=== PATIENT | male | born 1955 | race Two or more races ===

== ENCOUNTER 2017-06-11 16:06 | Emergency (ER) | payer MEDICAID ==
[2017-06-11] MEDS ORDERED: HYDROCODONE/APAP 10/325 TABLET PO ONE (16:30)
--- NOTE | 2017-06-11 16:35 | Emergency Department Record ---
History of Present Illness - General Chief Complaint: Back Pain/Injury Stated Complaint: CHRONIC BACK PAIN Time Seen by Provider: 06/11/17 16:25 Source: Patient Mode of Arrival: Ambulatory Limitations: No limitations - History of Present Illness Initial Comments: The patient is here due to his chronic back pain flaring up today. He has a LONG hx of chronic pain and ran out of his [place] this AM. Now his pain is worse. The pain is located in the mid back and is much worse with any movement and bending. He denies any arm or leg numbness, weakness, or any bowel or bladder incontinence or inability to go. The patient states he does have script waiting for him at the pharmacy but has none for today. The patient denies any new pain or any trauma or fall. MD Complaint: Back pain Onset/Timin -: Days(s) Treatments Prior to Arrival: Prescription analgesics - Related Data Allergies Allergy/AdvReac Type Severity Reaction Status Date / Time codeine Allergy Severe TACHYCARDIA Verified 06/11/17 16:24 ibuprofen [From Motrin] AdvReac Mild NAUSEA Verified 06/11/17 16:24 pregabalin [From Lyrica] AdvReac Mild DIZZINESS Verified 06/11/17 16:24 zolpidem tartrate AdvReac Mild DIZZINESS Verified 06/11/17 16:24 [From Ambien] Travel Screening - Travel/Exposure Within Last 30 Days Have you traveled within the last 30 days?: No - Travel/Exposure Within Last Year Have you traveled outside the [place] in the last year?: No - Additonal Travel Details Have you been exposed to anyone with a communicable illness?: No - Travel Symptoms Symptom Screening: None Review of Systems Constitutional: Denies: Chills Eyes: Denies: Eye discharge ENT: Denies: Congestion Respiratory: Denies: Dyspnea Past Medical History - SOCIAL HISTORY Smoking Status: Current every day smoker Alcohol Use: None Drug Use: None - RESPIRATORY Hx Respiratory Disorders: Yes Hx Asthma: Yes - CARDIOVASCULAR Hx Cardio Disorders: No Hx Cardiac Cath: Yes (neg) Comment:: bradycardia episodes, asymptomatic - NEURO Hx Neuro Disorders: No Hx Headaches: Yes Hx of Migraines: Yes Hx Neuropathy: Yes (occasionally in RUE) - GI Hx GI Disorders: Yes Hx Hepatitis/Jaundice: Yes (now a ' virus' finished testing) - Hx Genitourinary Disorders: Yes Hx Kidney Stones: Yes - ENDOCRINE Hx Endocrine Disorders: No - MUSCULOSKELETAL Hx Musculoskeletal Disorders: Yes Hx Back Injury: Yes (slip and fall injury) - PSYCH Hx Psych Problems: Yes Hx Anxiety: Yes Hx Depression: Yes - HEMATOLOGY/ONCOLOGY Hx Hematology/Oncology Disorders: No Family Medical History Any Significant Family History?: No Family Hx Comment (NOT TO BE USED IN PLACE OF ITEMS BELOW): does not know anything about father Hx Cancer: Brother/Sister Hx HTN: Brother/Sister Hx Liver Disease: Grandparents Physical Exam - General General Appearance: Alert, Oriented x3, Cooperative, No acute distress - Head Head exam: Atraumatic, Normocephalic, Normal inspection - Eye Eye exam: Normal appearance, PERRL - Neck Neck exam: Normal inspection, Full ROM. negative: Tenderness - Respiratory Respiratory exam: Normal lung sounds bilaterally. negative: Respiratory distress - Cardiovascular Cardiovascular Exam: Regular rate, Normal rhythm, Normal heart sounds - GI/Abdominal GI/Abdominal exam: Soft, Normal bowel sounds. negative: Tenderness - Extremities Extremities exam: Normal inspection, Full ROM, Normal capillary refill. negative: Tenderness - Neurological Neurological exam: Alert, Normal gait, Oriented X3, Reflexes normal, Other (Neg SLR bilaterally. ). negative: Abnormal gait, Altered, Motor sensory deficit Course Vital Signs 06/11/17 16:14 Pulse Rate 66 Respiratory 20 Rate Blood Pressure 140/85 Pulse Ox 96 - Reevaluation(s) Reevaluation #1: I did explain to the patient that we do not treat chronic pain in the ED. I was willing to give him 2 pain pills for home and he is to see his PCP this week for recheck. 06/11/17 16:33 Disposition Disposition: Discharge Clinical Impression: Chronic back pain Qualifiers: Back pain location: back pain in unspecified location Back pain laterality: midline Qualified Code(s): M54.9 - Dorsalgia, unspecified Disposition: Home, Self-Care Condition: (2) Stable Instructions: Chronic Back Pain (ED) Additional Instructions: Please take your pain medicine as directed. Please see your PCP for recheck in 2 -3 days. Return to the ER for any increased pain, fever, arm or leg numbness, weakness or any bowel or bladder issues. Forms: Patient Portal Access Time of Disposition: 16:35 Quality - Quality Measures Quality Measures: N/A - Blood Pressure Screening View Details: Yes Does Patient Have Any of the Following: No Blood Pressure Classification: Pre-Hypertensive BP Reading Systolic Measurement: 138 Diastolic Measurement: 86 Screening for High Blood Pressure: < Pre-Hypertensive BP, F/U Documented > [ G8950] Pre-Hypertensive Follow-up Interventions: Referral to alternative/primary care provider.
== END 2017-06-11 16:53 | disposition home or self-care (01) ==
LOC: ER 16:06
DX: G89.29 Other chronic pain (principal); M54.6 Pain in thoracic spine
CPT/HCPCS: 99282

== ENCOUNTER 2018-05-20 12:07 | Observation (INO) | payer MEDICARE, MEDICAID ==
[2018-05-20] MEDS ORDERED: 0.9 % SODIUM CHLORIDE 1,000 ML BAG IV ONE (12:12)
[2018-05-20] MEDS ORDERED: ACETAMINOPHEN 1,000 MG/100 ML BTL IVPB ONE (12:12)
--- NOTE | 2018-05-20 12:19 | Emergency Department Record ---
History of Present Illness - General Chief Complaint: Passed out Stated Complaint: FALL/HEAD INJURY Time Seen by Provider: 05/20/18 12:11 Source: Patient Mode of Arrival: Ambulatory Limitations: No limitations - History of Present Illness Initial Comments: 62 yo male presents after passing out. He reports he woke up this morning around 8:30 -9am. He went downstairs to make coffee. He was walking into the kitchen and became lightheaded. He states everything went black and he passed out. He hit the back of his head and neck. No incontinence. He states he had a similar episode 3 weeks ago where he briefly passed out. He denies a cardiac history. His PCP is Dr Sanders. The patient smokes. He denies alcohol. He lives with his mother. Today's event was not witnessed. He is treated for chronic pain. MD Complaint: Collapsed, Loss of consciousness -: Hour(s) (3) Prodromal Symptoms: Lightheaded Witnessed: No Injuries Sustained Associated with Event: Head, Neck, Back Current Symptoms: Headache, Lightheaded Context: Standing up Treatments Prior to Arrival: None - Related Data Allergies Allergy/AdvReac Type Severity Reaction Status Date / Time codeine Allergy Severe TACHYCARDIA Unverified 04/20/18 12:33 ibuprofen [From Motrin] AdvReac Mild NAUSEA Unverified 04/20/18 12:33 pregabalin [From Lyrica] AdvReac Mild DIZZINESS Unverified 04/20/18 12:33 zolpidem tartrate AdvReac Mild DIZZINESS Unverified 04/20/18 12:33 [From Ambien] Review of Systems Constitutional: Denies: Chills, Fever, Malaise, Weakness Eyes: Denies: Eye discharge, Eye pain ENT: Denies: Congestion, Throat pain Respiratory: Denies: Cough, Dyspnea, Hemoptysis, Stridor, Wheezes Cardiovascular: Reports: Syncope. Denies: Chest pain, Palpitations Endocrine: Denies: Fatigue Gastrointestinal: Denies: Diarrhea, Nausea, Vomiting Genitourinary: Denies: Dysuria, Frequency, Hematuria Musculoskeletal: Reports: Back pain, Neck pain. Denies: Arthralgia Skin: Denies: Bruising, Change in color, Rash Neurological: Reports: Headache, Vertigo Psychiatric: Denies: Anxiety Hematological/Lymphatic: Denies: Blood Clots, Easy bleeding, Easy bruising, Swollen glands Past Medical History - SOCIAL HISTORY Smoking Status: Current every day smoker Drug Use: None - RESPIRATORY Hx Respiratory Disorders: Yes Hx Asthma: Yes - CARDIOVASCULAR Hx Cardio Disorders: No Hx Cardiac Cath: Yes (neg) Comment:: bradycardia episodes, asymptomatic - NEURO Hx Neuro Disorders: No Hx Headaches: Yes Hx of Migraines: Yes Hx Neuropathy: Yes (occasionally in RUE) - GI Hx GI Disorders: Yes Hx Hepatitis/Jaundice: Yes (now a ' virus' finished testing) - Hx Genitourinary Disorders: Yes Hx Kidney Stones: Yes - ENDOCRINE Hx Endocrine Disorders: No - MUSCULOSKELETAL Hx Musculoskeletal Disorders: Yes Hx Back Injury: Yes (slip and fall injury) - PSYCH Hx Psych Problems: Yes Hx Anxiety: Yes Hx Depression: Yes - HEMATOLOGY/ONCOLOGY Hx Hematology/Oncology Disorders: No Family Medical History Family Hx Comment (NOT TO BE USED IN PLACE OF ITEMS BELOW): does not know anything about father Hx Cancer: Brother/Sister Hx HTN: Brother/Sister Hx Liver Disease: Grandparents Physical Exam - General General Appearance: Alert, Oriented x3, Cooperative, No acute distress Limitations: No limitations - Head Head exam: Normocephalic, Normal inspection. negative: Atraumatic Head exam detail: Contusion (posterior) - Eye Eye exam: Normal appearance, PERRL, EOMI. negative: Conjunctival injection, Periorbital swelling, Periorbital tenderness, Scleral icterus - ENT ENT exam: Normal exam, Mucous membranes moist Ear exam: Normal external inspection Nasal Exam: Normal inspection Mouth exam: Normal external inspection - Neck Neck exam: Normal inspection, Tenderness. negative: Full ROM (in collar) - Respiratory Respiratory exam: Normal lung sounds bilaterally. negative: Respiratory distress - Cardiovascular Cardiovascular Exam: Regular rate, Normal rhythm, Normal heart sounds Peripheral Pulses: 2+: Radial (R), Radial (L) - GI/Abdominal GI/Abdominal exam: Soft. negative: Tenderness - Rectal Rectal exam: Deferred - exam: Deferred - Extremities Extremities exam: Normal inspection, Full ROM, Normal capillary refill. negative: Calf tenderness, Pedal edema, Tenderness - Back Back exam: Reports: Normal inspection, Tenderness Image of Body Front/Back: 1 - tenderness - Neurological Neurological exam: Alert, CN II-XII intact, Oriented X3. negative: Altered, Motor sensory deficit - Psychiatric Psychiatric exam: Normal affect, Normal mood - Skin Skin exam: Dry, Intact, Normal color, Warm Course - Reevaluation(s) Reevaluation #1: EKG #1: 12:18 Rate: 68 Rhythm: sinus Datto: left Intervals: normal ST segments: no acute changes, poor R wave progression, no WPW, normal QTc, No Brugada. Prior: No priors 05/20/18 12:23 No acute changes on the CMP or CBC 05/20/18 12:52 Normal Troponin 05/20/18 13:29 05/20/18 14:[address] scans of the head and neck were reviewed. No acute injuries. Incidental subQ air on the left. The CT's were reviewed with the radiologist. etiology is unclear but no pneumothorax visible on apical areas of cervical CT, no skull FX. The patient has no skin trauma. He states this could be air in the venous structures from IV start. The patient is not symptomatic. C collar removed. No blood in ear canals. TM's poorly visualized due to wax but portions seen no hemotympanum. Given his syncopal episode recommend admission, serial enzymes, monitor. Cardiology consult tomorrow. I SW Vinicius Mendiola NP of the [facility] for admission. Medical Decision Making - Lab Data Result diagrams: 05/20/18 12:15 05/20/18 12:15 Disposition Disposition: Admit Clinical Impression: Syncope Qualifiers: Syncope type: unspecified Qualified Code(s): R55 - Syncope and collapse Head contusion Qualifiers: Contusion of head detail: unspecified part of head Disposition: Still a Patient at [facility] Decision to Admit: Admit from ER Decision to Admit Date: 05/20/18 Decision to Admit Time: 14:22 Condition: (1) Good Forms: Patient Portal Access Time of Disposition: 14:22 Quality - Quality Measures Quality Measures: N/A, Blunt Head Trauma (>2yr) - Ernesto Coma Scale Ernesto Coma Scale: [place] Coma Scale Eye Response: (4) Open spontaneously Motor Response: (6) Obeys commands Verbal Response: (5) Oriented Ernesto Total: 15 - Blunt Head Trauma - Adult Quality Measure: Measure #415: Utilization of CT for Minor Blunt Head Trauma ICD10 Codes Entered: Yes Was CT ordered: Yes Does Patient Have Any of the Following: No Exclusions Patient Presented Within 24 Hours of Injury: Yes Ernesto Score: [address] for Minor Blunt Head Trauma: < CT Done, Appropriate Indication > [G9529] Additional Inclusion Criteria: Within 24hrs (AND) GCS of 15 (AND) CT ordered. [ G9530] Indications For CT: Trauma Above the Clavicles w/Loss of Consciousness - Blood Pressure Screening Does Patient Have Any of the Following: No Blood Pressure Classification: Pre-Hypertensive BP Reading Systolic Measurement: 152 Diastolic Measurement: 85 Screening for High Blood Pressure: < Pre-Hypertensive BP, F/U Documented > [ G8950] Pre-Hypertensive Follow-up Interventions: Referral to alternative/primary care provider.
[2018-05-20 12:35] LABS: BASO % 0.2 % (0-6); EOS % 0.7 % (0-6); GRAN % 63.3 % (47-80); HEMATOCRIT 42.9 % (42.0-52.0); HEMOGLOBIN 14.2 gm/dl (14.0-18.0); LYMPH % 26.3 % (16-45); MEAN CELL VOLUME 91.1 fl (81-97); MEAN CORPUSCULAR HEMOGLOBIN 30.1 pg (27-33); MEAN CORPUSCULAR HGB CONC 33.1 g/dl (32-36); MEAN PLATELET VOLUME 10.4 fl (7.4-10.4); MONO % 9.5 % (0-9); PLATELET COUNT 217 K/uL (130-400); RED BLOOD COUNT 4.71 M/uL (4.40-5.70); RED CELL DISTRIBUTION WIDTH 13.2 % (11.5-14.5); WHITE BLOOD COUNT W/O DIFF 5.6 K/uL (4.2-12.2)
[2018-05-20 12:48] LABS: BLOOD UREA NITROGEN 11 mg/dL (8-23); CREATININE 0.7 mg/dL (0.7-1.2); EST GLOMERULAR FILTRATION RATE > 60 mL/min; INR 1.1; PROTHROMBIN TIME (PATIENT) 10.8 SECONDS (9.5-12.1)
[2018-05-20 12:49] LABS: TOTAL PROTEIN 8.3 g/dL (6.6-8.7)
[2018-05-20 12:51] LABS: GLUCOSE,RANDOM 123 mg/dL (74-109)
[2018-05-20 12:54] LABS: ALB/GLOB RATIO 1.3 (1.1-1.8); ALBUMIN 4.7 g/dL (4.0-5.0); ALKALINE PHOSPHATASE 35 U/L (40-129); ALT/SGPT 19 U/L (<41); AST/SGOT 21 U/L (10.0-50.0)
[2018-05-20] MEDS ORDERED: HYDROCODONE/APAP 10/325 TABLET PO PRN (15:02)
[2018-05-20] MEDS ORDERED: 0.9 % SODIUM CHLORIDE 1000ML 1,000 ML IV PRN (15:02)
[2018-05-20] MEDS: HYDROCODONE/APAP 10/325 TABLET PO SCH ×2 (16:03→22:04)
[2018-05-20] MEDS: ACETAMINOPHEN 500 MG TABLET PO SCH ×2 (16:04→22:05)
[2018-05-20] MEDS ORDERED: NICOTINE14 MG/24 HOUR PATCH TD SCH (22:00)
[2018-05-20] MEDS: MELATONIN 5 MG TABLET PO SCH ×2 (22:05→22:12)
[2018-05-21] MEDS: TRAMADOL HCL 50 MG TABLET PO PRN ×2 (00:45→11:34)
[2018-05-21] MEDS: HYDROCODONE/APAP 10/325 TABLET PO SCH (06:49)
[2018-05-21] MEDS: ACETAMINOPHEN 500 MG TABLET PO SCH (06:50)
[2018-05-21 06:51] LABS: BASO % 0.2 % (0-6); EOS % 2.3 % (0-6); GRAN % 52.5 % (47-80); HEMATOCRIT 38.8 % (42.0-52.0); HEMOGLOBIN 12.5 gm/dl (14.0-18.0); LYMPH % 35.2 % (16-45); MEAN CELL VOLUME 92.6 fl (81-97); MEAN CORPUSCULAR HEMOGLOBIN 29.8 pg (27-33); MEAN CORPUSCULAR HGB CONC 32.2 g/dl (32-36); MEAN PLATELET VOLUME 10.3 fl (7.4-10.4); MONO % 9.8 % (0-9); PLATELET COUNT 194 K/uL (130-400); RED BLOOD COUNT 4.19 M/uL (4.40-5.70); WHITE BLOOD COUNT W/O DIFF 5.3 K/uL (4.2-12.2)
[2018-05-21 07:13] LABS: ALB/GLOB RATIO 1.3 (1.1-1.8); ALKALINE PHOSPHATASE 30 U/L (40-129); ALT/SGPT 14 U/L (<41); AST/SGOT 17 U/L (10.0-50.0); BLOOD UREA NITROGEN 11 mg/dL (8-23); CREATININE 0.6 mg/dL (0.7-1.2); EST GLOMERULAR FILTRATION RATE > 60 mL/min; GLUCOSE,RANDOM 101 mg/dL (74-109)
[2018-05-21 07:23] LABS: THYROID STIMULATING HORMONE 2.65 uIU/mL (0.270-4.20)
--- NOTE | 2018-05-21 07:24 | CT SCAN REPORT ---
EXAM: CT SCAN OF THE HEAD HISTORY: PATIENT HAS A HISTORY OF A FALL. TECHNIQUE: Serial axial CT scan of the head was performed at 2.5 mm intervals from the base of the skull to the apex without the use of intravenous contrast. Sagittal and coronal reconstructions are provided. No comparison CT's are available. FINDINGS: The ventricles, cisterns, and sulci appear within normal limits for size, shape and attenuation. There is no mass or mass effect. There is no CT evidence of intra or extraaxial fluid collection to suggest bleeding. The corona and white differentiation appear within normal limits. There are emphysematous changes identified within the soft tissue of the left temporal region which may indicate the area of abrasion. Bone windows demonstrate no CT evidence of a fracture or dislocation of the skull. The paranasal sinuses are unremarkable. IMPRESSION: 1. SUBCUTANEOUS EMPHYSEMATOUS CHANGES ARE IDENTIFIED WITHIN THE LEFT TEMPORAL REGION WHICH MAY BE THE RESULT OF AN ABRASION. CLINICAL CORRELATION IS RECOMMENDED. 2. NO CT EVIDENCE OF AN ACUTE INTRACRANIAL PROCESS. JOB NUMBER: [id number] [facility]
--- NOTE | 2018-05-21 07:37 | CT SCAN REPORT ---
EXAM: CT SCAN OF THE CERVICAL SPINE HISTORY: PATIENT HAS A HISTORY OF FALL. TECHNIQUE: Serial axial CT scan of the cervical spine was performed at 2.5 mm intervals from the base of the skull to the thoracic inlet without the use of intravenous contrast. Sagittal and coronal reconstructions are provided. No comparison CT's are available. FINDINGS: The vertebral body height, contour, and AP alignment of the cervical spine is within normal limits. There is no CT evidence of a fracture or dislocation of the cervical spine. The prevertebral soft tissue and parapharyngeal fat are unremarkable. The visualized parotid, submandibular, and thyroid gland are unremarkable. There is no CT evidence of cervical lymphadenopathy. Lung windows demonstrate the airways to be widely patent. The lung windows of the lung apices are unremarkable. Subcutaneous emphysematous changes are identified within the soft tissue of the left side of the neck which may be related to abrasions. Clinical correlation is recommended. IMPRESSION: SUBCUTANEOUS EMPHYSEMATOUS CHANGES ARE IDENTIFIED WITHIN THE LEFT SIDE OF THE NECK WHICH MAY BE RELATED TO ABRASIONS. THERE IS NO CT EVIDENCE OF AN ACUTE FRACTURE OR DISLOCATION OF THE CERVICAL SPINE. JOB NUMBER: [id number] [facility]
--- NOTE | 2018-05-21 07:41 | RADIOLOGY REPORT ---
EXAM: THORACIC SPINE, FOUR VIEWS HISTORY: PATIENT HAS A HISTORY OF FALL. TECHNIQUE: Four views of the thoracic spine are provided without comparison examination. FINDINGS: There is no radiographic evidence of a fracture or dislocation of the thoracic spine. The bilateral pedicles, posterior spinous processes, and transverse processes of the thoracic spine are within normal limits. The vertebral body height, contour, and AP alignment of the thoracic spine is within normal limits. The visualized lung amaya are unremarkable. There is multilevel mild to moderate disk space height loss with end plate sclerosis and anterior vertebral body osteophyte formation. 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 JOB NUMBER: [id number] [facility]
--- NOTE | 2018-05-21 10:17 | History & Physical ---
History of Present Illness - Date of Service Date of Service for History & Physical: 05/21/18 - History of Present Illness Admitting Diagnosis: syncope History of Present Illness: Mahad Madrigal is a 62 y.o. male who presented to the ED after passing out in his kitchen. Reported that he woke up around 8:30-9:00am, walked into his kitchen, became lightheaded and then passed out. Hit the back of his head and neck. Denied incontinence. Denied chest pain, SOB or palpitations prior to the episode. Had a similar episode approximately 3 weeks ago. Denies a cardiac history. Uses tobacco but denied alcohol use. PMHx indlues asthma, hx of cardiac cath, migraines, hx of hepatitis, chronic pain on Herrick 10/325mg TID and anxiety/depression. CT of head and neck: negative for acute process EKG: Sinus rhythm, poor R wave progression, no WPW, normal QTc CBC and CMP: WNL, unremarkable Troponins: normal 05/21/18 1000 Vitals: 132/86 54 18 96% RA 97.8 Pt reports today that he is having some discomfort in his head and neck region that is chronic. Concerned about having his Herrick dose lowered from QID to TID approximately 4 months ago. States that this is the reason he passed out in his kitchen. Hasn't been able to sleep since his dose reduction d/t pain so he "passed out because he was tired." He said that his knees just "buckled" in the kitchen and he hit his head on the refrigerator. This was unwitnessed. Reports that he takes 1 Herrick pill between 3am-5am, 11am-1pm and 8pm-10pm. Medical records show that he was prescribed Meloxicam 15mg at his last appointment in the [facility] but pt states the medication didn't do anything for him so he stopped taking it. Denies cardiac history, although medical records indicate a cardiac cath in the past. Reports smoking 4-6 cigarettes a day. Says that he used to be able to walk 1 mile every day but now he can't do it d/t pain. Says he can go up a flight of stairs without becoming SOB. Denies chest pain, CALISTA, palpitations or lightheadedness at this time. Travel Screening - Travel/Exposure Within Last 30 Days Have you traveled within the last 30 days?: No - Travel/Exposure Within Last Year Have you traveled outside the [place] in the last year?: No - Additonal Travel Details Have you been exposed to anyone with a communicable illness?: No - Travel Symptoms Symptom Screening: None Review of Systems Reviewed: No additional complaints except as noted below Constitutional: Denies: Chills, Fever, Malaise, Weakness Eyes: Denies: Eye discharge, Eye pain ENT: Denies: Congestion, Throat pain Respiratory: Denies: Cough, Dyspnea, Hemoptysis, Stridor, Wheezes Cardiovascular: Reports: Syncope. Denies: Chest pain, Dyspnea on exertion, Edema, Palpitations Endocrine: Denies: Fatigue Gastrointestinal: Denies: Diarrhea, Nausea, Vomiting Genitourinary: Denies: Dysuria, Frequency, Hematuria Musculoskeletal: Reports: Back pain, Neck pain. Denies: Arthralgia Skin: Denies: Bruising, Change in color, Rash Neurological: Reports: Headache, Vertigo Psychiatric: Denies: Anxiety Hematological/Lymphatic: Denies: Blood Clots, Easy bleeding, Easy bruising, Swollen glands Past Medical History - SOCIAL HISTORY Smoking Status: Current every day smoker Alcohol Use: Rare Drug Use: None - RESPIRATORY Hx Respiratory Disorders: Yes Hx Bronchitis: Yes Comment:: pt states hx allergies - CARDIOVASCULAR Hx Cardio Disorders: Yes Hx Cardiac Cath: Yes (neg) Comment:: bradycardia episodes, asymptomatic - NEURO Hx Neuro Disorders: No Hx Headaches: Yes Hx of Migraines: Yes Hx Neuropathy: Yes (occasionally in RUE) - GI Hx GI Disorders: Yes Hx Hepatitis/Jaundice: Yes (now a ' virus' finished testing) - Hx Genitourinary Disorders: Yes Hx Kidney Stones: Yes - ENDOCRINE Hx Endocrine Disorders: No Hx Diabetes: No Hx Thyroid Disease: No - MUSCULOSKELETAL Hx Musculoskeletal Disorders: Yes Hx Back Injury: Yes (slip and fall injury, ddd, spinal stenosis) - PSYCH Hx Psych Problems: Yes Hx Anxiety: Yes Hx Depression: Yes - HEMATOLOGY/ONCOLOGY Hx Hematology/Oncology Disorders: No Family Medical History Any Significant Family History?: Yes Family Hx Comment (NOT TO BE USED IN PLACE OF ITEMS BELOW): does not know anything about father Hx Cancer: Brother/Sister Hx HTN: Brother/Sister Hx Resp Disorders: Mother, Brother/Sister, Grandparents H&P Meds/Allergies - Allergies Allergies: Allergies Allergy/AdvReac Type Severity Reaction Status Date / Time codeine Allergy Severe TACHYCARDIA Unverified 04/20/18 12:33 ibuprofen [From Motrin] AdvReac Mild NAUSEA Unverified 04/20/18 12:33 pregabalin [From Lyrica] AdvReac Mild DIZZINESS Unverified 04/20/18 12:33 zolpidem tartrate AdvReac Mild DIZZINESS Unverified 04/20/18 12:33 [From Ambien] - Active Medications Active Medications: Current Medications Acetaminophen (Tylenol 500mg Tab) 500 mg PO Q8H NICK Hydrocodone Bitart/Acetaminophen (Herrick 10mg/325mg) 1 each PO Q8H NICK Sodium Chloride () 1,000 mls @ 83 mls/hr IV .Q12H3M PRN PRN Reason: LARGE VOLUME IV Melatonin (Melatonin) 5 mg PO QHS [facility] Last Admin: 05/20/18 22:12 Dose: Not Given Nicotine (Nicotine 14mg) 1 patch TD Q24H [facility] Last Admin: 05/20/18 22:04 Dose: 1 patch Tramadol HCl (Ultram) 50 mg PO Q6H PRN PRN Reason: PAIN - MILD TO MODERATE (1-7) Last Admin: 05/21/18 00:45 Dose: 50 mg Physical Exam - Vital Signs Vital Signs: Vital Signs - Last 24 Hrs Temp Pulse Pulse Pulse Pulse Resp BP 05/21/18 07:45 57 L 52 L 20 05/21/18 07:42 97.8 F 54 L 18 05/20/18 20:00 97.9 F 51 L 16 05/20/18 15:53 59 L 57 L 18 05/20/18 15:38 97.5 F L 59 L 57 L 18 05/20/18 15:02 61 18 155/91 05/20/18 13:40 70 18 05/20/18 12:10 97.7 F 60 18 152/85 BP Pulse Ox 05/21/18 07:45 05/21/18 07:42 132/86 96 05/20/18 20:00 136/70 97 05/20/18 15:53 05/20/18 15:38 151/76 98 05/20/18 15:02 98 05/20/18 13:40 166/105 05/20/18 12:10 99 - General General Appearance: Alert, Oriented x3, Cooperative, No acute distress Limitations: No limitations - Head Head exam: Normocephalic, Normal inspection. negative: Atraumatic Head exam detail: Contusion (posterior) - Eye Eye exam: Normal appearance, PERRL, EOMI. negative: Conjunctival injection, Periorbital swelling, Periorbital tenderness, Scleral icterus - ENT ENT exam: Normal exam, Mucous membranes moist Ear exam: Normal external inspection Nasal Exam: Normal inspection Mouth exam: Normal external inspection - Neck Neck exam: Normal inspection, Full ROM, Tenderness - Respiratory Respiratory exam: Normal lung sounds bilaterally. negative: Accessory muscle use, Respiratory distress, Wheezes - Cardiovascular Cardiovascular Exam: Regular rate, Normal rhythm, Normal heart sounds Peripheral Pulses: 2+: Radial (R), Radial (L) - GI/Abdominal GI/Abdominal exam: Soft, Normal bowel sounds. negative: Distended, Tenderness - Rectal Rectal exam: Deferred - exam: Deferred - Extremities Extremities exam: Normal inspection, Full ROM, Normal capillary refill. negative: Calf tenderness, Pedal edema, Tenderness - Back Back exam: Reports: Normal inspection, Tenderness - Neurological Neurological exam: Alert, CN II-XII intact, Oriented X3. negative: Altered, Motor sensory deficit - Psychiatric Psychiatric exam: Normal affect, Normal mood - Skin Skin exam: Dry, Intact, Normal color, Warm Results - Labs Result Diagrams: 05/21/18 06:33 05/21/18 06:33 Labs Last 24 Hours: Laboratory Results - last 24 hr 05/20/18 05/20/18 05/20/18 12:15 12:15 12:15 WBC 5.6 RBC 4.71 Hgb 14.2 Hct 42.9 MCV 91.1 MCH 30.1 MCHC 33.1 RDW 13.2 Plt Count 217 MPV 10.4 Gran % 63.3 Neutrophils % Lymphocytes % 26.3 Monocytes % 9.5 H Eosinophils % 0.7 Basophils % 0.2 Lymphocytes Monocytes PT 10.8 INR 1.1 APTT 29.0 Sodium 141 Potassium 3.4 Chloride 101 Carbon Dioxide 25.0 Anion Gap 15.0 BUN 11 Creatinine 0.7 Estimated GFR > 60 Random Glucose 123 H Calcium 10.1 Total Bilirubin 0.70 AST 21 ALT 19 Alkaline Phosphatase 35 L Troponin T < 0.010 Total Protein 8.3 Albumin 4.7 Globulin 3.6 Albumin/Globulin Ratio 1.3 TSH 05/20/18 05/21/18 05/21/18 18:15 01:55 06:33 WBC 5.3 RBC 4.19 L Hgb 12.5 L Hct 38.8 L MCV 92.6 MCH 29.8 MCHC 32.2 RDW 13.0 Plt Count 194 MPV 10.3 Gran % 52.5 Neutrophils % Not Reportable Lymphocytes % 35.2 Monocytes % 9.8 H Eosinophils % 2.3 Basophils % 0.2 Lymphocytes Not Reportable Monocytes Not Reportable PT INR APTT Sodium Potassium Chloride Carbon Dioxide Anion Gap BUN Creatinine Estimated GFR Random Glucose Calcium Total Bilirubin AST ALT Alkaline Phosphatase Troponin T < 0.010 < 0.010 Total Protein Albumin Globulin Albumin/Globulin Ratio TSH 05/21/18 06:33 WBC RBC Hgb Hct MCV MCH MCHC RDW Plt Count MPV Gran % Neutrophils % Lymphocytes % Monocytes % Eosinophils % Basophils % Lymphocytes Monocytes PT INR APTT Sodium 142 Potassium 3.6 Chloride 102 Carbon Dioxide 26.0 Anion Gap 14.0 BUN 11 Creatinine 0.6 L Estimated GFR > 60 Random Glucose 101 Calcium 9.1 Total Bilirubin 0.40 AST 17 ALT 14 Alkaline Phosphatase 30 L Troponin T Total Protein 7.0 Albumin 4.0 Globulin 3.0 Albumin/Globulin Ratio 1.3 TSH 2.65 - Imaging and Cardiology CT scan - chest Status: Report reviewed VTE H&P Assessment - Risk for VTE Risk for VTE: Yes Risk Level: Moderate Risk Assessment Date: 05/21/18 Risk Assessment Time: 11:39 VTE Orders Placed or Will Be Placed: No VTE Reason for No Prophylaxis: Not Indicated Plan - Detailed Diagnosis and Plan (1) Syncope Current Visit: Yes Status: Acute Qualifiers: Syncope type: unspecified Qualified Code(s): R55 - Syncope and collapse Base Code: R55 - SYNCOPE AND COLLAPSE Comment: 05/21/18: -Syncopal episode upon waking up on the morning of 05/20/18. Similar episode 3 weeks prior. -No cardiac history reported, yet had a cardiac cath in the past -EKG: Sinus rhythm, no acute ST changs, poor R wave progression, no WPW, normal QTc -Normal Troponins x 3 -No Acute changes in CBC or CMP -Telemetry -Echocardiogram and Carotid Dopplers pending -Awaiting Cardiology Consult this afternoon with [facility] -Will D/C patient if Cardiology clears pt -Will need f/u with Dr. Sanders this week (2) Head contusion Current Visit: Yes Status: Acute Qualifiers: Contusion of head detail: unspecified part of head Base Code: S00.93XA - CONTUSION OF UNSPECIFIED PART OF HEAD, INITIAL ENCOUNTER Comment: 05/21/18: -Unwitnessed syncopal episode on 05/20/18, hit head -CT of head/neck: no evidence of acute process, subcutaneous emphysematous changes identified within left temporal region which may be d/t abrasion from hitting head -Neuro checks q. 12 hours -Normal Neuro exam -Reports increased pain d/t head contusion. Scheduled Herrick 10/325mg TID (home dose) along with Tylenol 500mg TID and Ultram 50mg q. 6 hours PRN (3) Full code status Current Visit: Yes Status: Acute Base Code: Z78.9 - OTHER SPECIFIED HEALTH STATUS Comment: 05/21/18: -Full code this admission (4) DVT prophylaxis Current Visit: Yes Status: Acute Base Code: [id number] - Comment: 05/21/18: -Moderate risk -Nursing to Encourage ambulation
[2018-05-21] MEDS ORDERED: ACETAMINOPHEN 500 MG TABLET PO SCH (14:00)
[2018-05-21] MEDS ORDERED: HYDROCODONE/APAP 10/325 TABLET PO SCH (14:00)
--- NOTE | 2018-05-21 16:38 | Discharge Summary ---
Providers Discharge Summary Date: 05/21/18 Date of admission: 05/20/18 14:45 Attending physician: JESSICA SANDERS Primary care physician: JESSICA SANDERS Consults: Consult Orders 05/20/18 15:02 Consult - Cardiology NOW Consulting Provider: LINDA LARSON Physician Instructions: Reason For Exam: syncope Does pt have current septic tank cleaner?: [place] Physical Exam - Vital Signs Vital Signs: Vital Signs - Last 24 Hrs Temp Pulse Pulse Resp BP Pulse Ox 05/21/18 12:00 61 18 149/81 99 05/21/18 07:45 57 L 52 L 20 05/21/18 07:42 97.8 F 54 L 18 132/86 96 05/20/18 20:00 97.9 F 51 L 16 136/70 97 - General General Appearance: Alert, Oriented x3, Cooperative, No acute distress Limitations: No limitations - Head Head exam: Normocephalic, Normal inspection. negative: Atraumatic Head exam detail: Contusion (posterior) - Eye Eye exam: Normal appearance, PERRL, EOMI. negative: Conjunctival injection, Periorbital swelling, Periorbital tenderness, Scleral icterus - ENT ENT exam: Normal exam, Mucous membranes moist Ear exam: Normal external inspection Nasal Exam: Normal inspection Mouth exam: Normal external inspection - Neck Neck exam: Normal inspection, Full ROM, Tenderness - Respiratory Respiratory exam: Normal lung sounds bilaterally. negative: Accessory muscle use, Respiratory distress, Wheezes - Cardiovascular Cardiovascular Exam: Regular rate, Normal rhythm, Normal heart sounds Peripheral Pulses: 2+: Radial (R), Radial (L) - GI/Abdominal GI/Abdominal exam: Soft, Normal bowel sounds. negative: Distended, Tenderness - Rectal Rectal exam: Deferred - exam: Deferred - Extremities Extremities exam: Normal inspection, Full ROM, Normal capillary refill. negative: Calf tenderness, Pedal edema, Tenderness - Back Back exam: Reports: Normal inspection, Tenderness - Neurological Neurological exam: Alert, CN II-XII intact, Oriented X3. negative: Altered, Motor sensory deficit - Psychiatric Psychiatric exam: Normal affect, Normal mood - Skin Skin exam: Dry, Intact, Normal color, Warm Hospitalization - Hospitalization Admission Diagnosis: syncope - Problem List/Discharge Diagnosis (1) Syncope Current Visit: Yes Status: Acute Discharge Diagnosis: Syncope type: unspecified Qualified Code(s): R55 - Syncope and collapse Base Code: R55 - SYNCOPE AND COLLAPSE Comment: 05/21/18 1600: -Cardiology consult recommended outpatient 30 day event monitor and chemical stress test. -Will discharge patient since cardiology feels pt can f/u outpatient -Syncopal episode upon waking up on the morning of 05/20/18. Similar episode 3 weeks prior. -No cardiac history reported, yet had a cardiac cath in the past -Denies CP, SOB, dizziness or palpitations. -EKG: Sinus rhythm, no acute ST changs, poor R wave progression, no WPW, normal QTc -Normal Troponins x 3 -No Acute changes in CBC or CMP -Telemetry -Echocardiogram and Carotid Dopplers pending -Will need f/u with Dr. Sanders this week re: hip pain and increased pain d/t contusion (2) Head contusion Current Visit: Yes Status: Acute Discharge Diagnosis: Contusion of head detail: unspecified part of head Base Code: S00.93XA - CONTUSION OF UNSPECIFIED PART OF HEAD, INITIAL ENCOUNTER Comment: 05/21/18 1600: -Unwitnessed syncopal episode on 05/20/18, hit head -CT of head/neck: no evidence of acute process, subcutaneous emphysematous changes identified within left temporal region which may be d/t abrasion from hitting head -Neuro checks q. 12 hours -Normal Neuro exam -Discharge on regular home dose of [place] (3) Full code status Current Visit: Yes Status: Acute Base Code: Z78.9 - OTHER SPECIFIED HEALTH STATUS Comment: 05/21/18: -Full code this admission (4) DVT prophylaxis Current Visit: Yes Status: Acute Base Code: [id number] - Comment: 05/21/18: -Moderate risk -Nursing to Encourage ambulation - Hospitalization Course Disposition: Home, Self-Care Hospital Course: Mahad Madrigal is a 62 y.o. male who presented to the ED after passing out in his kitchen. Reported that he woke up around 8:30-9:00am, walked into his kitchen, became lightheaded and then passed out. Hit the back of his head and neck. Denied incontinence. Denied chest pain, SOB or palpitations prior to the episode. Had a similar episode approximately 3 weeks ago. Denies a cardiac history. Uses tobacco but denied alcohol use. PMHx indlues asthma, hx of cardiac cath, migraines, hx of hepatitis, chronic pain on [place] 10/325mg TID and anxiety/depression. CT of head and neck: negative for acute process EKG: Sinus rhythm, poor R wave progression, no WPW, normal QTc CBC and CMP: WNL, unremarkable Troponins: normal 05/21/18 1000 Vitals: 132/86 54 18 96% RA 97.8 Pt reports today that he is having some discomfort in his head and neck region that is chronic. Concerned about having his [place] dose lowered from QID to TID approximately 4 months ago. States that this is the reason he passed out in his kitchen. Hasn't been able to sleep since his dose reduction d/t pain so he "passed out because he was tired." He said that his knees just "buckled" in the kitchen and he hit his head on the refrigerator. This was unwitnessed. Reports that he takes 1 [place] pill between 3am-5am, 11am-1pm and 8pm-10pm. Medical records show that he was prescribed Meloxicam 15mg at his last appointment in the [facility] but pt states the medication didn't do anything for him so he stopped taking it. Denies cardiac history, although medical records indicate a cardiac cath in the past. Reports smoking 4-6 cigarettes a day. Says that he used to be able to walk 1 mile every day but now he can't do it d/t pain. Says he can go up a flight of stairs without becoming SOB. Denies chest pain, CALISTA, palpitations or lightheadedness at this time. 05/21/18 1630 Nursing staff reports that Cardiology is going to do further workup as an outpatient. Neuro checks negative. Vitals stable. No new complaints or concerns. Procedures: Imaging and X-Rays 05/20/18 12:11 CERVICAL SPINE WO CONTRAST [CT] Stat HEAD WO CONTRAST [CT] Stat THORACIC SPINE [RAD] Stat 05/21/18 15:52 ARTERIAL DOPPLER CAROTID PEYTON [US] Stat Cardiology Procedures 05/20/18 12:11 Manager Licensing .Continuous EKG NOW 05/20/18 15:02 Manager Licensing .Continuous Manager Licensing .Continuous EKG [id number]@0600 Echo W/CF & Cardiac Doppler NOW Abnormal Labs: Abnormal Lab Results 05/20/18 05/20/18 05/21/18 Range/Units 12:15 12:15 06:33 RBC 4.19 L (4.40-5.70) M/uL Hgb 12.5 L (14.0-18.0) gm/dl Hct 38.8 L (42.0-52.0) % Monocytes % 9.5 H 9.8 H (0-9) % Creatinine (0.7-1.2) mg/dL Random Glucose 123 H (74-109) mg/dL Alkaline Phosphatase 35 L (40-129) U/L 05/21/18 Range/Units 06:33 RBC (4.40-5.70) M/uL Hgb (14.0-18.0) gm/dl Hct (42.0-52.0) % Monocytes % (0-9) % Creatinine 0.6 L (0.7-1.2) mg/dL Random Glucose (74-109) mg/dL Alkaline Phosphatase 30 L (40-129) U/L Condition at Discharge: (1) Good VTE Discharge VTE Reason For No Overlap Therapy: Not Indicated Discharge Medications - Discharge Medications Home Medications: Ambulatory Orders Acetaminophen [Tylenol 500Mg Tab] 500 mg PO Q8H tablet 05/21/18 [Last Taken Unknown] Discharge Plan - Discharge Instructions Activity at Discharge: Increase Activity as Tolerated Diet at Discharge: Low Fat, Low Cholesterol Additional Instructions: 30 day event monitor and chemical stress test as per cardiology recommendations Follow up with Dr. Sanders on 05/24/18 to discuss your worsening pain and sleep disturbances. Should your symptoms return or a new problem arise, return to ED for evaluation Continue with your home dose of [place]. Take one Tylenol 500mg tablet along with the dose of [place]. Quality Measures - Quality Measures Quality Measures: Documentation of Current Medications in Medical Record, Screening for High Blood Pressure and F/U Documented - Current Medications Quality Measure: Measure #130: Documentation of Current Medications Documentation of Current Medications: <Current Medications Documented/Reviewed> [[id number]] - Blood Pressure Screening Quality Measure: Screening for High Blood Pressure and Follow-Up Documented Does Patient Have Any of the Following: No Blood Pressure Classification: Hypertensive Reading Systolic Measurement: 155 Diastolic Measurement: 91 Screening for High Blood Pressure: < First Hypertensive BP, F/U Documented > [ [id number]] First Hypertensive Follow-up Interventions: Referral to alternative/primary care provider. - Elder Abuse Suspicion Index EASI Reference Information: Bita BERTRAND, Nayana Ely, Simon Lind, Agustin Tadeo.Development and validation of a tool to assist physicians identification of elder abuse: The Elder Abuse Suspicion Index (EASI ). Journal of Elder Abuse and Neglect, 2008; 20 (3): 276-300.
--- NOTE | 2018-05-21 20:30 | Cardiology Consult ---
DATE OF CONSULTATION: 05/21/2018 REASON FOR CONSULT: SYNCOPE. HISTORY OF PRESENT ILLNESS: This is a pleasant 62-year-old male with no previous history of coronary artery disease. He presented to the Emergency Department after passing out in his kitchen. He states that he had not been sleeping well and walked into his kitchen. The patient states he felt his legs give out from underneath him and fell hitting his head and neck at that time. He states he was aware of what happened. He denies any incontinence. This was an unwitnessed event. He states he had a similar episode approximately three weeks ago where his legs gave out from underneath him. The patient feels it's because he hasn't been sleeping well and that he was very tired. The patient denies any episodes of chest pain, shortness of breath, or palpitations. He denies any lower extremity edema. He does state he had a heart catheterization performed in 2002 and this was negative for coronary artery disease. The patient states he had no prodromal signs and again states his legs gave out prior to his syncopal episode. Currently, the patient is undergoing a carotid Doppler. His EKG demonstrates sinus rhythm with Q-waves in V1 through V3. No acute changes noted. Troponins were negative. REVIEW OF SYSTEMS: GENERAL: Denies any fever, chills, or significant weight change. EYES; Denies any recent visual changes. ENT; Denies any congestion or throat pain. Denies any change in hearing. RESPIRATORY; Denies a cough, dyspnea, or hemoptysis. CARDIOVASCULAR; Positive syncope. Negative chest pain, dyspnea, edema, and palpitations. ENDOCRINE; Denies polydipsia or polyuria. GASTROINTESTINAL; Denies diarrhea, nausea, vomiting, or melena. GENITOURINARY; Denies dysuria, frequency, or hematuria. MUSCULOSKELETAL; Denies new back pain. Positive neck pain due to fall. SKIN; Denies any bruising or rash. NEUROLOGICAL; Positive headache. PSYCHIATRIC; Denies anxiety. HEMATOLOGICAL/LYMPHATIC; Denies history of blot clots or easy bruising. PAST MEDICAL HISTORY: Significant for syncope. Negative diabetes. Negative hypertension. Negative hyperlipidemia. Positive chronic pain. SOCIAL HISTORY: Continues to be an everyday smoker. Alcohol use is rare. Illicit drug use is reported as none. FAMILY HISTORY: Brothers and sister with history of cancer. Brother and sister with hypertension. No known history of premature coronary artery disease. ALLERGIES LISTED: CODEINE. IBUPROFEN. LYRICA. AMBIEN. CURRENT MEDICATIONS: Tylenol Hydrocodone Acetaminophen [place] 10/325 one p.o. every eight hours Melatonin 5 mg p.o. every h.s. Nicotine 14 mg Patch every 24 Tramadol 50 mg every six hours p.r.n. PHYSICAL EXAMINATION: VITAL SIGNS: Blood pressure 132/86. Pulse 57. Respirations 18. He is afebrile. O2 saturation 96% on room air. GENERAL: The patient is alert and oriented x3, answers questions appropriately. He does not appear to be in any acute distress. HEENT: Normocephalic, atraumatic. Extraocular movements are intact. Pupils are equal and round. NECK: Supple without lymphadenopathy, thyromegaly, or bruits. CARDIAC: Regular rate and rhythm. No significant murmurs were appreciated. LUNGS: Clear to auscultation in all lung amaya without rales, rhonchi, or wheeze. ABDOMEN: Soft, nontender. Bowel sounds present in all four quadrants. EXTREMITIES: No edema. 2+ pulses bilaterally. SKIN: Warm and dry. DIAGNOSTIC STUDIES: LABORATORIES: WBC 5.3. Hemoglobin 12.5 Hematocrit 38.8. Platelet count 194. Sodium 142. Potassium 3.6. Chloride 102. CO2 26. BUN 11. Creatinine 0.6. Glucose 101. Troponin less than 0.[address] SCAN: Negative for acute process. ASSESSMENT/PLAN: 1. SYNCOPE: Patient has an echocardiogram pending at this time. He is undergoing carotid Dopplers currently. Will plan a Lexiscan Cardiolite to assess for possible ischemia contributing to symptoms, as EKG does show some Q- waves present in the anterior leads. Would recommend 30-day event monitor due to his current symptoms of syncope to assess for any high-grade arrhythmias. Patient will be seen following these tests to review the results. He was instructed to contract our office if he has any concerns prior to his appointment time. JOB NUMBER: [id number] MTDD
--- NOTE | 2018-05-22 11:41 | US CAROTID DOPPLER REPORT ---
EXAM: STAT BILATERAL CAROTID DOPPLER ULTRASOUND HISTORY: SYNCOPE. TECHNIQUE: Duong scale, color Doppler and duplex Doppler evaluation of the bilateral carotid arteries was performed. Comparison: No prior carotid arterial Doppler ultrasound with which to compare. FINDINGS: 3 Vessel Right Peak Systolic/ End Diastolic Velocities Left Peak Systolic/ End Diastolic Velocities Proximal Common Carotid Artery 113.4 cm/s /12.4 cm/s 101.8 cm/s /11.1 cm/s Mid Common Carotid Artery 83.6 cm/s /11.1 cm/s 68.1 cm/s /13.7 cm/s Distal Common Carotid Artery 46.0 cm/s /9.8 cm/s 55.2 cm/s /12.4 cm/s Proximal Internal Carotid Artery 53.7 cm/s /20.8 cm/s 53.9 cm/s /15.0 cm/s Mid Internal Carotid Artery 63.6 cm/s /17.5 cm/s 61.6 cm/s /22.8 cm/s Distal Internal Carotid Artery 83.4 cm/s /20.8 cm/s 50.4 cm/s /14.2 cm/s Carotid Bulb 35 cm/s /6.5 cm/s 52.6 cm/s /0 cm/s Proximal External Carotid Artery 82.3 cm/s /6.5 cm/s 79.8 cm/s /6.0 cm/s d d d Right Flow Left Flow Vertebral Artery Antegrade Antegrade The ICA/CCA peak systolic velocity ratio on the right was 1.8. The ICA/CCA peak systolic velocity ratio on the left was 1.1. There appears to be some minor calcified plaque in the region of the carotid bulb on the right within the distal left common carotid as well as bulb, however, no definite high grade stenosis seen when the images are viewed. Somewhat unusual waveform in the right vertebral of uncertain significance. Velocities within both vertebrals, however, were non-elevated. IMPRESSION: 1. THERE IS SOME MILD CALCIFIED PLAQUE SEEN BILATERALLY. 2. PEAK SYSTOLIC VELOCITIES WELL VELOCITY RATIOS WERE NON-ELEVATED BILATERALLY WITH NO CONVINCING EVIDENCE OF HIGH GRADE STENOSIS ON EITHER SIDE IDENTIFIED. SOMEWHAT UNUSUAL WAVEFORM IN THE RIGHT VERTEBRAL OF UNCERTAIN SIGNIFICANCE WITH NON-ELEVATED VELOCITIES IN THE RIGHT VERTEBRAL WELL. JOB NUMBER: [id number] [facility]
== END 2018-05-21 18:10 | disposition home or self-care (01) ==
LOC: ER 12:07 → MEDSURG 14:45
PROVIDERS: ADMIT Internal Medicine; ATTEND Internal Medicine
DX: S00.93XA Contusion of unspecified part of head, initial encounter (principal); W19.XXXA Unspecified fall, initial encounter; Y92.000 Kitchen of unspecified non-institutional (private) residence as the place of occurrence of the external cause; G62.9 Polyneuropathy, unspecified; G89.29 Other chronic pain; F17.210 Nicotine dependence, cigarettes, uncomplicated; Z95.811 Presence of heart assist device; Z87.442 Personal history of urinary calculi; J45.909 Unspecified asthma, uncomplicated
CPT/HCPCS: 85025; 85730; 85610; 80053 ×2; 84443; 84484 ×2; 85027; 72072; 93880; 72125; 70450; 93005 ×2; 93010; 93306; G0378 ×2; J3490 ×3; 96365; 99220; 99285; J7030

== ENCOUNTER 2018-08-17 06:37 | Emergency (ER) | payer MEDICARE ==
[2018-08-17] MEDS ORDERED: 0.9 % SODIUM CHLORIDE 1,000 ML BAG IV ONE (07:16)
--- NOTE | 2018-08-17 07:16 | Emergency Department Record ---
History of Present Illness - General Chief Complaint: Abdominal Pain Stated Complaint: ABDOMINAL PAIN Time Seen by Provider: 08/17/18 07:01 Source: Patient - History of Present Illness Initial Comments: The patient complains of LUQ and epigastric abdominal pain which awakened him from sleep around 3 a.m. He has had about 1 week of small hard BM's. He describes the pain as pressure which waxes and wanes, and caused him to become sweaty when he awakened. He took Pepsodent for gas last evening which helped for a while. He is belching and is flatulent. He denies vomiting or diarrhea. No recent antibiotics. He has chronic thoracic ack pain for which he takes norco 10's. He states he went to [facility] yesterday, 08-15-18 because he was having lightheadedness and dizziness with near syncopal symptoms. His chart was obtained and reviewed. Review shows normal head CT and normal CXR reports, labs wnl. including troponin. EKG wnl then. MD Complaint: Abdominal pain - Related Data Allergies Allergy/AdvReac Type Severity Reaction Status Date / Time codeine Allergy Severe TACHYCARDIA Unverified 05/23/18 14:15 trazodone Allergy Severe SHORTNESS Unverified 06/15/18 14:42 OF BREATH ibuprofen [From Motrin] AdvReac Mild NAUSEA Unverified 05/23/18 14:15 pregabalin [From Lyrica] AdvReac Mild DIZZINESS Unverified 05/23/18 14:15 zolpidem tartrate AdvReac Mild DIZZINESS Unverified 05/23/18 14:15 [From Ambien] Review of Systems Reviewed: No additional complaints except as noted below Constitutional: Reports: As per HPI. Denies: Chills, Fever, Malaise, Night sweats, Weakness, Weight change Eyes: Reports: As per HPI. Denies: Eye discharge, Eye pain, Photophobia, Vision change ENT: Reports: As per HPI. Denies: Congestion, Dental pain, Ear pain, Epistaxis , Hearing loss, Throat pain Respiratory: Reports: As per HPI. Denies: Cough, Dyspnea, Hemoptysis, Stridor, Wheezes Cardiovascular: Reports: As per HPI. Denies: Arrhythmia, Chest pain, Dyspnea on exertion, Edema, Murmurs, Orthopnea, Palpitations, Paroxysmal nocturnal dyspnea, Rheumatic Fever, Syncope Endocrine: Reports: As per HPI. Denies: Fatigue, Heat or cold intolerance, Polydipsia, Polyuria Gastrointestinal: Reports: As per HPI. Denies: Abdominal pain, Constipation, Diarrhea, Hematemesis, Hematochezia, Melena, Nausea, Vomiting Genitourinary: Reports: As per HPI. Denies: Dysuria, Frequency, Hematuria, Incontinence, Retention, Testicular pain, Testicular mass, Urgency Musculoskeletal: Reports: As per HPI. Denies: Arthralgia, Back pain, Gout, Joint swelling, Myalgia, Neck pain Skin: Reports: As per HPI. Denies: Bruising, Change in color, Change in hair/ nails, Lesions, Pruritus, Rash Neurological: Reports: As per HPI. Denies: Abnormal gait, Confusion, Headache, Numbness, Paresthesias, Seizure, Tingling, Tremors, Vertigo, Weakness Psychiatric: Reports: As per HPI. Denies: Anxiety, Auditory hallucinations, Depression, Homicidal thoughts, Suicidal thoughts, Visual hallucinations Hematological/Lymphatic: Reports: As per HPI. Denies: Anemia, Blood Clots, Easy bleeding, Easy bruising, Swollen glands Past Medical History - SOCIAL HISTORY Smoking Status: Current every day smoker Drug Use: None - RESPIRATORY Hx Respiratory Disorders: Yes Hx Bronchitis: Yes Comment:: pt states hx allergies - CARDIOVASCULAR Hx Cardio Disorders: Yes Hx Cardiac Cath: Yes (neg) Comment:: bradycardia episodes, asymptomatic - NEURO Hx Neuro Disorders: No Hx Headaches: Yes Hx of Migraines: Yes Hx Neuropathy: Yes (occasionally in RUE) - GI Hx GI Disorders: Yes Hx Hepatitis/Jaundice: Yes (now a ' virus' finished testing) - Hx Genitourinary Disorders: Yes Hx Kidney Stones: Yes - ENDOCRINE Hx Endocrine Disorders: No Hx Diabetes: No Hx Thyroid Disease: No - MUSCULOSKELETAL Hx Musculoskeletal Disorders: Yes Hx Back Injury: Yes (slip and fall injury, ddd, spinal stenosis) - PSYCH Hx Psych Problems: Yes Hx Anxiety: Yes Hx Depression: Yes - HEMATOLOGY/ONCOLOGY Hx Hematology/Oncology Disorders: No Family Medical History Any Significant Family History?: No Family Hx Comment (NOT TO BE USED IN PLACE OF ITEMS BELOW): does not know anything about father Hx Cancer: Brother/Sister Hx HTN: Brother/Sister Hx Resp Disorders: Mother, Brother/Sister, Grandparents Physical Exam - General General Appearance: Alert, Oriented x3, Cooperative, Mild distress - Head Head exam: Normal inspection - Eye Eye exam: Normal appearance, PERRL Pupils: Normal accommodation - ENT ENT exam: Normal exam, Mucous membranes moist, Normal external ear exam, Normal orophraynx, TM's normal bilaterally Ear exam: Normal external inspection. negative: External canal tenderness Nasal Exam: Normal inspection. negative: Discharge, Sinus tenderness Mouth exam: Normal external inspection, Tongue normal Teeth exam: Normal inspection. negative: Dental caries Throat exam: Normal inspection. negative: Tonsillar erythema, Tonsillar exudate - Neck Neck exam: Normal inspection, Full ROM. negative: Lymphadenopathy, Meningismus , Tenderness - Respiratory Respiratory exam: Normal lung sounds bilaterally. negative: Accessory muscle use, Chest wall tenderness, Respiratory distress, Wheezes - Cardiovascular Cardiovascular Exam: Regular rate, Normal rhythm, Normal heart sounds, Other ( bradycardia (also present on chart review from yesterday)) - GI/Abdominal GI/Abdominal exam: Soft, Normal bowel sounds, Tenderness (EPigastric and LUQ tenderness). negative: Guarding, Hernia, Rebound, Rigid - Rectal Rectal exam: Deferred - exam: Deferred - Extremities Extremities exam: Normal inspection, Full ROM, Normal capillary refill. negative: Calf tenderness, Pedal edema, Tenderness - Back Back exam: Reports: Normal inspection, Full ROM. Denies: CVA tenderness (R), CVA tenderness (L), Muscle spasm, Rash noted, Tenderness - Neurological Neurological exam: Alert, CN II-XII intact, Normal gait, Oriented X3, Reflexes normal. negative: Motor sensory deficit - Psychiatric Psychiatric exam: Normal affect, Normal mood - Skin Skin exam: Dry, Intact, Normal color, Warm Course Vital Signs 08/17/18 06:43 Temperature 98.2 F Pulse Rate [ 54 L Pulse Ox Probe] Respiratory 20 Rate Blood Pressure 133/70 [Left Arm] Pulse Ox 100 - Reevaluation(s) Reevaluation #1: Patient is resting comfortably on cart. Relistore SQ given for constipation from narcotics. Awaiting CT reading. Preliminary by me shows large amount of stool. 08/17/18 09:08 Reevaluation #2: Had BM here. Feeling better. Will follow with Dr. Sanders in office. 08/17/18 09:26 Medical Decision Making - Management Options MDM Management: No Additional Work-up Planned - Data Complexity MDM Data: Labs Ordered and/or Reviewed (No significant abnormal lab noted. TSH wnl. Troponin <0.010), X-Ray Ordered and/or Reviewed (CT ABdPelvis: No acute abnormality; abundant stool) - Lab Data Result diagrams: 08/17/18 06:50 08/17/18 06:50 - EKG Data -: EKG Interpreted by Me EKG: No Acute Changes (Sinus dyana at 50/min; poor R wave progression, no prior for comparison.) Disposition Disposition: Discharge Clinical Impression: Abdominal pain in male, Constipation due to pain medication Disposition: Home, Self-Care Return To Work/School Note Provided: No Condition: (1) Good Instructions: Constipation (ED), Abdominal Pain (ED) Additional Instructions: Increase fluids. Consider alternative medication for your chronic back pain through your PCP. Miralax as directed. High fiber diet. Fresh fruits, vegetables, no processed foods. Follow up with your PCP next week in office. Quality - Quality Measures Quality Measures: N/A, Blunt Head Trauma (>2yr) - Blunt Head Trauma - Adult ICD10 Codes Entered: Yes Was CT ordered: No Patient Presented Within 24 Hours of Injury: No Utilization of CT for Minor Blunt Head Trauma: Patient Excluded [G9531] Additional Inclusion Criteria: More than 24hrs (OR) GCS not 15 (OR) CT not ordered. Not Eligible Reason: CT Not Ordered, Injury Greater Than 24 Hours Ago - Blood Pressure Screening Does Patient Have Any of the Following: No Blood Pressure Classification: Hypertensive Reading Systolic Measurement: 145 Diastolic Measurement: 74 Screening for High Blood Pressure: < Pre-Hypertensive BP, F/U Documented > [ G8950] Pre-Hypertensive Follow-up Interventions: Follow-up with rescreen every year.
[2018-08-17 07:27] LABS: BASO % 0.4 % (0-6); EOS % 2.1 % (0-6); GRAN % 58.4 % (47-80); HEMATOCRIT 42.6 % (42.0-52.0); HEMOGLOBIN 14.1 gm/dl (14.0-18.0); MEAN CELL VOLUME 91.6 fl (81-97); MEAN CORPUSCULAR HEMOGLOBIN 30.3 pg (27-33); MEAN CORPUSCULAR HGB CONC 33.1 g/dl (32-36); MEAN PLATELET VOLUME 10.6 fl (7.4-10.4); MONO % 11.1 % (0-9); PLATELET COUNT 224 K/uL (130-400); RED BLOOD COUNT 4.65 M/uL (4.40-5.70); RED CELL DISTRIBUTION WIDTH 12.6 % (11.5-14.5); URINE APPEARANCE CLEAR; URINE BILIRUBIN NEGATIVE (NEGATIVE); URINE BLOOD TRACE-I (NEGATIVE); URINE COLOR YELLOW; URINE GLUCOSE (UA) NEGATIVE (NEGATIVE); URINE KETONE NEGATIVE (NEGATIVE); URINE LEUKOCYTE ESTERASE NEGATIVE (NEGATIVE); URINE NITRITE NEGATIVE (NEGATIVE); URINE PROTEIN NEGATIVE (NEGATIVE); URINE UROBILINOGEN 0.2 E.U./dL (0.20 - 1.00); WHITE BLOOD COUNT W/O DIFF 5.3 K/uL (4.2-12.2)
[2018-08-17 07:35] LABS: URINE EPITHELIAL CELLS 0 - 2 (FEW); URINE RBC 0 - 2 (NONE SEEN); URINE WBC 0 - 2 (0-2/hpf)
[2018-08-17 07:41] LABS: BLOOD UREA NITROGEN 9 mg/dL (8-23); CREATININE 0.6 mg/dL (0.7-1.2); EST GLOMERULAR FILTRATION RATE > 60 mL/min; TOTAL PROTEIN 8.7 g/dL (6.6-8.7)
[2018-08-17 07:43] LABS: GLUCOSE,RANDOM 98 mg/dL (74-109)
[2018-08-17 07:46] LABS: ALBUMIN 4.7 g/dL (4.0-5.0); ALKALINE PHOSPHATASE 39 U/L (55-149); ALT/SGPT 16 U/L (<41); AST/SGOT 21 U/L (10.0-50.0); LIPASE 31 U/L (13-60)
[2018-08-17 07:50] LABS: BILIRUBIN,DIRECT < 0.2 mg/dL (0-0.3)
[2018-08-17] MEDS ORDERED: METHYLNALTREXONE BROMIDE (RELISTOR) 12MG/0.6ML SYRINGE SQ ONE (08:48)
--- NOTE | 2018-08-18 20:28 | CT SCAN REPORT ---
EXAM: CT SCAN ABDOMEN/PELVIS WO CONTRAST HISTORY: LEFT-SIDED FLANK PAIN. TECHNIQUE: Sequential axial images were obtained from the diaphragms through the ischiorectal fossa without intravenous or oral contrast administration. FINDINGS: Visualized lung bases appear normal. Heart and pericardium appear normal. The non-opacified liver, gallbladder, pancreas, and spleen appear normal. The adrenal glands and kidneys appear normal. There is a nonobstructing calculus in the left kidney. No CT findings suggestive of obstructive uropathy. The small bowel appears normal. The appendix is visualized and appears normal. The colon appears normal. There is prostate gland hyperplasia. There is mild wall thickening of the urinary bladder, likely related to outlet obstruction. The osseous structures are grossly unremarkable. IMPRESSION: 1. NONOBSTRUCTING CALCULUS LEFT KIDNEY. NO OBSTRUCTIVE UROPATHY. 2. PROSTATE GLAND HYPERPLASIA. MILD WALL THICKENING OF THE URINARY BLADDER, LIKELY RELATED TO OUTLET OBSTRUCTION. JOB NUMBER: [id number] MTDD
== END 2018-08-17 09:45 | disposition home or self-care (01) ==
LOC: ER 06:37
DX: K59.03 Drug induced constipation (principal); T40.605A Adverse effect of unspecified narcotics, initial encounter; R10.12 Left upper quadrant pain; M54.6 Pain in thoracic spine; G89.21 Chronic pain due to trauma; R42 Dizziness and giddiness; F17.210 Nicotine dependence, cigarettes, uncomplicated
CPT/HCPCS: 99284 ×2; 96372; 83690; 85025; 80076; 80048; 81001; 84443; 84484; 74176; 93005; 93010; J2212; J7030

== ENCOUNTER 2018-10-02 11:48 | Emergency (ER) | payer MEDICARE ==
--- NOTE | 2018-10-02 12:08 | Emergency Department Record ---
History of Present Illness - General Chief Complaint: Back Pain/Injury Stated Complaint: BACK PAIN Time Seen by Provider: 10/02/18 11:59 Source: Patient Mode of Arrival: Ambulatory Limitations: No limitations - History of Present Illness Initial Comments: 63 yo male presents with chronic thoracic pain for many years. He states over the last several months the pain has increased. He sees Dr Sanders and the pain clinic. He is on [place] and muscle relaxants. He is scheduled in November for injections. No new or different symptoms or locations. His last XR was one year last year. No numbness or tingling. No changes in bowel or bladder sensation. MD Complaint: Back pain -: Year(s) Similar Symptoms Previously: Yes Place: Home Radiation: None Severity: Moderate Quality: Aching Consistency: Constant Improves With: Immobilization Worsens With: Movement Context: Other (chronic) Associated Symptoms: Denies other symptoms - Related Data Home Medications Medication Instructions Recorded Confirmed Last Taken Tizanidine HCl 4 mg PO QHS 10/02/18 10/02/18 2 Days Ago ~09/30/18 Allergies Allergy/AdvReac Type Severity Reaction Status Date / Time codeine Allergy Severe TACHYCARDIA Unverified 09/11/18 15:15 trazodone Allergy Severe SHORTNESS Unverified 09/11/18 15:15 OF BREATH ibuprofen [From Motrin] AdvReac Mild NAUSEA Unverified 09/11/18 15:15 pregabalin [From Lyrica] AdvReac Mild DIZZINESS Unverified 09/11/18 15:15 zolpidem tartrate AdvReac Mild DIZZINESS Unverified 09/11/18 15:15 [From Ambien] Review of Systems Constitutional: Denies: Chills, Fever, Malaise, Weakness Eyes: Denies: Eye discharge ENT: Denies: Congestion, Throat pain Respiratory: Denies: Cough, Dyspnea, Hemoptysis, Stridor, Wheezes Cardiovascular: Denies: Chest pain, Palpitations, Syncope Endocrine: Denies: Fatigue Gastrointestinal: Denies: Abdominal pain, Diarrhea, Nausea, Vomiting Genitourinary: Denies: Dysuria, Frequency, Hematuria Musculoskeletal: Reports: As per HPI, Back pain, Neck pain. Denies: Arthralgia Skin: Denies: Bruising, Change in color, Rash Neurological: Denies: Abnormal gait, Confusion, Headache, Numbness, Seizure, Tingling, Tremors, Vertigo, Weakness Psychiatric: Denies: Anxiety Hematological/Lymphatic: Denies: Blood Clots, Easy bleeding, Easy bruising Past Medical History - SOCIAL HISTORY Smoking Status: Current every day smoker Drug Use: None - RESPIRATORY Hx Respiratory Disorders: Yes Hx Bronchitis: Yes Comment:: pt states hx allergies - CARDIOVASCULAR Hx Cardio Disorders: Yes Hx Cardiac Cath: Yes (neg) Comment:: bradycardia episodes, asymptomatic - NEURO Hx Neuro Disorders: No Hx Headaches: Yes Hx of Migraines: Yes Hx Neuropathy: Yes (occasionally in RUE) - GI Hx GI Disorders: Yes Hx Hepatitis/Jaundice: Yes (now a ' virus' finished testing) - Hx Genitourinary Disorders: Yes Hx Kidney Stones: Yes - ENDOCRINE Hx Endocrine Disorders: No Hx Diabetes: No Hx Thyroid Disease: No - MUSCULOSKELETAL Hx Musculoskeletal Disorders: Yes Hx Back Injury: Yes (slip and fall injury, ddd, spinal stenosis) - PSYCH Hx Psych Problems: Yes Hx Anxiety: Yes Hx Depression: Yes - HEMATOLOGY/ONCOLOGY Hx Hematology/Oncology Disorders: No Family Medical History Family Hx Comment (NOT TO BE USED IN PLACE OF ITEMS BELOW): does not know anything about father Hx Cancer: Brother/Sister Hx HTN: Brother/Sister Hx Resp Disorders: Mother, Brother/Sister, Grandparents Physical Exam - General General Appearance: Alert, Oriented x3, Cooperative, No acute distress Limitations: No limitations - Head Head exam: Atraumatic, Normocephalic, Normal inspection - Eye Eye exam: Normal appearance, PERRL. negative: Conjunctival injection, Scleral icterus - ENT ENT exam: Normal exam Ear exam: Normal external inspection Nasal Exam: Normal inspection Mouth exam: Normal external inspection - Neck Neck exam: Normal inspection, Full ROM - Respiratory Respiratory exam: Normal lung sounds bilaterally. negative: Respiratory distress - Cardiovascular Cardiovascular Exam: Regular rate, Normal rhythm, Normal heart sounds Peripheral Pulses: 2+: Radial (R), Radial (L) - GI/Abdominal GI/Abdominal exam: Soft. negative: Distended, Guarding, Tenderness - Rectal Rectal exam: Deferred - exam: Deferred - Extremities Extremities exam: Normal inspection, Full ROM. negative: Pedal edema, Tenderness - Back Back exam: Reports: Paraspinal tenderness, Tenderness. Denies: CVA tenderness ( R), CVA tenderness (L) Image of Body Front/Back: 1 - tender midline T spine, normal inspection - Neurological Neurological exam: Alert, Normal gait, Oriented X3. negative: Abnormal gait, Motor sensory deficit - Psychiatric Psychiatric exam: Normal affect, Normal mood - Skin Skin exam: Dry, Intact, Normal color, Warm Course - Reevaluation(s) Reevaluation #1: 10/02/18 12:47 The T spine XR was reviewed. No interval changes of the degenerative changes noted on the prior XR DC to follow up with his PCP and Pain clinic Disposition Disposition: Discharge Clinical Impression: Chronic thoracic back pain Qualifiers: Back pain laterality: midline Qualified Code(s): M54.6 - Pain in thoracic spine Disposition: Home, Self-Care Condition: (1) Good Instructions: Thoracic Pain (ED) Additional Instructions: Call your doctor for the next available follow up appointment Return to the ER for a recheck if worse, any new concerns or questions Call your doctors regarding your senior living pain control options Review this ER visit and the tests performed with your family doctor Forms: Patient Portal Access Time of Disposition: 12:48 Quality - Quality Measures Quality Measures: N/A - Blood Pressure Screening Does Patient Have Any of the Following: Active Dx of HTN Blood Pressure Classification: Pre-Hypertensive BP Reading Systolic Measurement: 128 Diastolic Measurement: 89 Screening for High Blood Pressure: Patient Exclusion, Hx of HTN [G9744] Pre-Hypertensive Follow-up Interventions: Referral to alternative/primary care provider.
[2018-10-02] MEDS ORDERED: MORPHINE SULFATE 10 MG/ML VIAL IM ONE (12:09)
--- NOTE | 2018-10-04 14:00 | RADIOLOGY REPORT ---
EXAM: THORACIC SPINE, TWO VIEWS HISTORY: WORSENING MID BACK PAIN. BILATERAL LOWER EXTREMITY WEAKNESS. NO RECENT INJURY. TECHNIQUE: AP and lateral views of the thoracic spine were obtained as well as spot lateral views of the cervicothoracic and thoracolumbar junctions. Comparison: Two views of the thoracic spine dated 05/20/18. CT of the cervical spine without contrast dated 05/20/18. FINDINGS: There is apparent borderline to mild diffuse osteopenia. The thoracic vertebra are normal in alignment and height. No acute fracture is seen. No lytic or blastic bone lesion. Anterior marginal end plate spurring is scattered throughout the thoracic spine most pronounced at the lower thoracic levels. The thoracic pedicles are intact. IMPRESSION: NO ACUTE OSSEOUS OR LIGAMENTOUS ABNORMALITY WITHOUT CHANGE SINCE 05/20/18. MULTILEVEL DEGENERATIVE END PLATE CHANGES REDEMONSTRATED. JOB NUMBER: [id number] MTDD
== END 2018-10-02 13:40 | disposition home or self-care (01) ==
LOC: ER 11:48
DX: M54.6 Pain in thoracic spine (principal); F17.210 Nicotine dependence, cigarettes, uncomplicated
CPT/HCPCS: 99283; 96372; 99284; 72072; J2270

== ENCOUNTER 2018-10-05 07:41 | Emergency (ER) | payer MEDICARE ==
--- NOTE | 2018-10-05 08:06 | Emergency Department Record ---
History of Present Illness - General Chief Complaint: Back Pain/Injury Stated Complaint: WEAKNESS/BACK PAIN Time Seen by Provider: 10/05/18 07:42 Source: Patient Mode of Arrival: Ambulatory Limitations: No limitations - History of Present Illness Initial Comments: The patient is here due to worsening of his chronic back pain. He has had chronic pain for years and takes C[place] for it. It seems that he has run out of his medicines yesterday and is not able to refill his C[place]olo for 5 days. Now the patient states his pain has been worse for the last month and is much worse with any movement or bending. He denies any radiation of the pain down the legs and no leg numbness, weakness or bowel or bladder issues. The patient now states the pain has been so severe he has passed out twice in the last day but was not injured. There were no witnesses to the passing out episodes and he is not sure how long he may have been out for. MD Complaint: Back pain Onset/Timin -: Year(s) Place: Other Context: Other Associated Symptoms: Loss of appetite, Weakness - Related Data Allergies Allergy/AdvReac Type Severity Reaction Status Date / Time codeine Allergy Severe TACHYCARDIA Unverified 09/11/18 15:15 trazodone Allergy Severe SHORTNESS Unverified 09/11/18 15:15 OF BREATH ibuprofen [From Motrin] AdvReac Mild NAUSEA Unverified 09/11/18 15:15 pregabalin [From Lyrica] AdvReac Mild DIZZINESS Unverified 09/11/18 15:15 zolpidem tartrate AdvReac Mild DIZZINESS Unverified 09/11/18 15:15 [From Ambien] Travel Screening - Travel/Exposure Within Last 30 Days Have you traveled within the last 30 days?: No - Travel/Exposure Within Last Year Have you traveled outside the [place] in the last year?: No - Additonal Travel Details Have you been exposed to anyone with a communicable illness?: No Review of Systems Constitutional: Denies: Chills, Fever Eyes: Denies: Eye discharge ENT: Denies: Congestion Respiratory: Denies: Cough, Dyspnea Cardiovascular: Denies: Arrhythmia Endocrine: Denies: Fatigue Gastrointestinal: Denies: Abdominal pain Genitourinary: Denies: Dysuria Musculoskeletal: Reports: Back pain Skin: Denies: Bruising Past Medical History - SOCIAL HISTORY Smoking Status: Light tobacco smoker (<10/day) Alcohol Use: None Drug Use: None - RESPIRATORY Hx Respiratory Disorders: Yes Hx Bronchitis: Yes Comment:: pt states hx allergies - CARDIOVASCULAR Hx Cardio Disorders: Yes Hx Cardiac Cath: Yes (neg) Comment:: bradycardia episodes, asymptomatic - NEURO Hx Neuro Disorders: No Hx Headaches: Yes Hx of Migraines: Yes Hx Neuropathy: Yes (occasionally in RUE) - GI Hx GI Disorders: Yes Hx Hepatitis/Jaundice: Yes (now a ' virus' finished testing) - Hx Genitourinary Disorders: Yes Hx Kidney Stones: Yes - ENDOCRINE Hx Endocrine Disorders: No Hx Diabetes: No Hx Thyroid Disease: No - MUSCULOSKELETAL Hx Musculoskeletal Disorders: Yes Hx Back Injury: Yes (slip and fall injury, ddd, spinal stenosis) - PSYCH Hx Psych Problems: Yes Hx Anxiety: Yes Hx Depression: Yes - HEMATOLOGY/ONCOLOGY Hx Hematology/Oncology Disorders: No Family Medical History Any Significant Family History?: No Family Hx Comment (NOT TO BE USED IN PLACE OF ITEMS BELOW): does not know anything about father Hx Cancer: Brother/Sister Hx HTN: Brother/Sister Hx Resp Disorders: Mother, Brother/Sister, Grandparents Physical Exam - General General Appearance: Alert, Oriented x3, Cooperative, No acute distress - Head Head exam: Atraumatic, Normocephalic, Normal inspection - Eye Eye exam: Normal appearance, PERRL - Neck Neck exam: Normal inspection, Full ROM. negative: Tenderness - Respiratory Respiratory exam: Normal lung sounds bilaterally. negative: Respiratory distress - Cardiovascular Cardiovascular Exam: Regular rate, Normal rhythm, Normal heart sounds - GI/Abdominal GI/Abdominal exam: Soft, Normal bowel sounds. negative: Tenderness - Rectal Rectal exam: Normal rectal tone - Extremities Extremities exam: Normal inspection, Full ROM, Normal capillary refill. negative: Tenderness - Back Back exam: Reports: Normal inspection, Paraspinal tenderness (R lower thoracic.) - Neurological Neurological exam: Alert, Normal gait, Oriented X3, Reflexes normal. negative: Abnormal gait, Altered, Motor sensory deficit - Psychiatric Psychiatric exam: negative: Anxious Course Vital Signs 10/05/18 07:51 Temperature 97.9 F Pulse Rate 67 Respiratory 16 Rate Blood Pressure 144/83 Pulse Ox 99 - Reevaluation(s) Reevaluation #1: The patient is doing well at this time. He denies any new symptoms and is resting comfortably. I did discuss the need for him to see his PCP due to the multitude of his chronic medical problems that he is concerned about. 10/05/18 09:03 Medical Decision Making - Data Complexity MDM Data: Labs Ordered and/or Reviewed, EKG Ordered and/or Reviewed - Lab Data Result diagrams: 10/05/18 08:26 10/05/18 08:26 - EKG Data -: EKG Interpreted by Me EKG: No Acute Changes Disposition Disposition: Discharge Clinical Impression: Chronic thoracic back pain Qualifiers: Back pain laterality: unspecified Qualified Code(s): M54.6 - Pain in thoracic spine Disposition: Home, Self-Care Condition: (2) Stable Instructions: Chronic Pain (ED) Additional Instructions: Please continue your home medicines and please see your family doctor to discuss your recent medical issues. Please also see the pain specialist [facility]. Return to the ER for any worsening pain, fever, leg numbness, weakness or any bowel or bladder issues. Forms: Patient Portal Access Time of Disposition: 09:05 Quality - Quality Measures Quality Measures: Blunt Head Trauma (>2yr) - Blunt Head Trauma - Adult Quality Measure: Measure #415: Utilization of CT for Minor Blunt Head Trauma ICD10 Codes Entered: Yes View Details: Yes Was CT ordered: No Ernesto Score: Please complete [place] Coma Scale above Utilization of CT for Minor Blunt Head Trauma: Not Eligible For Measure Additional Inclusion Criteria: More than 24hrs (OR) GCS not 15 (OR) CT not ordered. Not Eligible Reason: CT Not Ordered - Blood Pressure Screening View Details: Yes Does Patient Have Any of the Following: No Blood Pressure Classification: Pre-Hypertensive BP Reading Systolic Measurement: 144 Diastolic Measurement: 83 Screening for High Blood Pressure: < Pre-Hypertensive BP, F/U Documented > [ [id number]] Pre-Hypertensive Follow-up Interventions: Referral to alternative/primary care provider.
[2018-10-05] MEDS ORDERED: ACETAMINOPHEN 1,000 MG/100 ML BTL IVPB ONE (08:07)
[2018-10-05 08:37] LABS: BASO % 0.2 % (0-6); EOS % 0.9 % (0-6); GRAN % 63.4 % (47-80); HEMATOCRIT 41.9 % (42.0-52.0); HEMOGLOBIN 14.1 gm/dl (14.0-18.0); LYMPH % 26.8 % (16-45); MEAN CELL VOLUME 91.1 fl (81-97); MEAN CORPUSCULAR HEMOGLOBIN 30.7 pg (27-33); MEAN CORPUSCULAR HGB CONC 33.7 g/dl (32-36); MEAN PLATELET VOLUME 10.1 fl (7.4-10.4); MONO % 8.7 % (0-9); PLATELET COUNT 216 K/uL (130-400); RED CELL DISTRIBUTION WIDTH 12.7 % (11.5-14.5); WHITE BLOOD COUNT W/O DIFF 5.5 K/uL (4.2-12.2)
[2018-10-05 08:49] LABS: BLOOD UREA NITROGEN 6 mg/dL (8-23); CREATININE 0.5 mg/dL (0.7-1.2); EST GLOMERULAR FILTRATION RATE > 60 mL/min
[2018-10-05 08:50] LABS: TOTAL PROTEIN 8.2 g/dL (6.6-8.7)
[2018-10-05 08:52] LABS: GLUCOSE,RANDOM 99 mg/dL (74-109)
[2018-10-05 08:54] LABS: ALT/SGPT 15 U/L (<41); AST/SGOT 19 U/L (10.0-50.0)
[2018-10-05 08:55] LABS: ALB/GLOB RATIO 1.3 (1.1-1.8); ALBUMIN 4.7 g/dL (4.0-5.0); ALKALINE PHOSPHATASE 38 U/L (40-129)
== END 2018-10-05 09:32 | disposition home or self-care (01) ==
LOC: ER 07:41
DX: M54.6 Pain in thoracic spine (principal); G89.29 Other chronic pain; R53.1 Weakness; F17.210 Nicotine dependence, cigarettes, uncomplicated
CPT/HCPCS: 80053; 85025; 93005; 93010; 96365; 99284